=== PATIENT | male | born 1975 | race Caucasian/White ===

== ENCOUNTER 2021-01-17 00:54 | Emergency (ER) | payer SELFPAY ==
[~2021-01-17] VITALS: Ht 172.7 cm; Wt 80.0 kg
[2021-01-17 01:15] VITALS: BP 148/94
[2021-01-17] MEDS ORDERED: AMOX-424 MT (01:57)
[2021-01-17 04:29] LABS: *AMPHETAMINES SCREEN URINE NEGATIVE (NEGATIVE); *BARBITURATES SCREEN URINE NEGATIVE (NEGATIVE)
[2021-01-17 04:30] LABS: *BENZODIAZEPINES SCREEN URINE NEGATIVE (NEGATIVE); *COCAINE SCREEN URINE NEGATIVE (NEGATIVE); METHADONE URINE SCREEN NEGATIVE (NEGATIVE); OPIATES URINE SCREEN NEGATIVE (NEGATIVE); PHENCYCLIDINE URINE SCREEN PRESUMTIVE POSITIVE (NEGATIVE)
[2021-01-17 04:31] LABS: CANNABINOID URINE SCREEN PRESUMTIVE POSITIVE (NEGATIVE)
== END 2021-01-17 05:04 | disposition home or self-care (01) ==
LOC: EDBD 00:54 → ER 00:54
DX: S02.609A Fracture of mandible, unspecified, initial encounter for closed fracture (principal); F12.129 Cannabis abuse with intoxication, unspecified; F16.129 Hallucinogen abuse with intoxication, unspecified; X83.8XXA Intentional self-harm by other specified means, initial encounter; Y93.89 Activity, other specified; Y92.488 Other paved roadways as the place of occurrence of the external cause
CPT/HCPCS: 36415; 80305; 80320; 99283; G0480

== ENCOUNTER 2021-04-07 13:50 | Emergency (ER) | payer SELFPAY ==
[~2021-04-07] VITALS: Ht 180.3 cm; Wt 85.0 kg
[~2021-04-07 13:50] MED LIST: AMOX-424 MT
[2021-04-07 13:55] VITALS: BP 138/93
== END 2021-04-07 14:30 | disposition home or self-care (01) ==
LOC: ER 13:50
DX: F15.10 Other stimulant abuse, uncomplicated (principal); F22 Delusional disorders; F17.290 Nicotine dependence, other tobacco product, uncomplicated
CPT/HCPCS: 99283

== ENCOUNTER 2021-04-07 15:29 | Emergency (ER) | payer SELFPAY ==
[~2021-04-07] VITALS: Ht 172.7 cm; Wt 82.0 kg
[2021-04-07 15:30] VITALS: BP 135/83
== END 2021-04-07 23:49 | disposition home or self-care (01) ==
LOC: ER 15:29
DX: F15.10 Other stimulant abuse, uncomplicated (principal); F17.290 Nicotine dependence, other tobacco product, uncomplicated
CPT/HCPCS: 93005; 99283

== ENCOUNTER 2021-05-11 23:51 | Emergency (ER) | payer SELFPAY ==
[~2021-05-11] VITALS: Ht 177.8 cm; Wt 91.0 kg
[2021-05-11 23:54] VITALS: BP 136/87
[2021-05-12 00:46] LABS: BASOPHILS % 0.9 % (0.0-2.0); EOSINOPHILS % 4.6 % (0.0-5.0); HEMATOCRIT. 39.4 % (42.0-52.0); HEMOGLOBIN. 13.5 g/dL (14.0-18.0); LYMPHOCYTES % 38.5 % (20.0-50.0); MEAN CORPUSCULAR HEMOGLOBIN 30.2 pg (28.0-32.0); MEAN CORPUSCULAR VOLUME 88.4 fL (80.0-94.0); MEAN PLATELET VOLUME 7.6 fl (7.4-10.4); MONOCYTES % 11.6 % (2.0-8.0); NEUTROPHILS % 44.4 % (40.0-76.0); PLATELET 347 x1000/uL (130-400); RED BLOOD CELL COUNT 4.45 mill/uL (4.7-6.1); RED CELL DISTRIBUTION WIDTH 14.9 % (11.6-14.6)
[2021-05-12 00:54] LABS: CHLORIDE 107 mEq/L (98-107)
[2021-05-12 00:59] LABS: ETHANOL BLOOD < 10 mg/dL
== END 2021-05-12 01:00 | disposition left against medical advice (07) ==
LOC: ER 23:51
DX: R45.851 Suicidal ideations (principal); R44.3 Hallucinations, unspecified; I10 Essential (primary) hypertension; F15.10 Other stimulant abuse, uncomplicated
CPT/HCPCS: 36415; 80053; 80307; 80320; 80329; 84443; 85025; 99283; G0480